=== PATIENT | male | born 1970 | race Caucasian/White ===

== ENCOUNTER 2018-03-29 13:20 | Day surgery (SDC) | END 2018-03-29 18:34 | disposition home or self-care (01) ==

== ENCOUNTER 2019-02-08 11:23 | Day surgery (SDC) | payer MEDICARE, BC ==
[~2019-02-08] VITALS: Ht 172.7 cm; Wt 85.7 kg
[~2019-02-08 11:23] MED LIST: PROPRANOLOL; pantoprazole PO
[2019-02-08 12:28] VITALS: Ht 172.7 cm; Wt 85.7 kg
[2019-02-08 12:34] VITALS: BP 136/79; PULSE 66; RESP 10
[2019-02-08] MEDS ORDERED: PROPOFOL 40 ML ONE (15:08)
[2019-02-08 15:34] VITALS: BP 119/81; PULSE 78; RESP 16
== END 2019-02-08 15:47 | disposition home or self-care (01) ==
LOC: GIL 11:23
PROVIDERS: ATTEND Internal Medicine Gastroenterology
DX: I85.00 Esophageal varices without bleeding (principal); K76.6 Portal hypertension; K31.89 Other diseases of stomach and duodenum; J45.909 Unspecified asthma, uncomplicated